=== PATIENT | female | born 2000 | race Caucasian/White ===

== ENCOUNTER 2019-03-09 17:03 | Emergency (ER) | payer OTHER ==
[2019-03-09 17:33] VITALS: BP 109/62
--- NOTE | 2019-03-09 17:44 | UC ---
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 Typically she does aerobic activity and strength training most days. She has felt able to attend classes. History of IBS with fluctuating constipation and diarrhea, most recently constipated. Has not bee following her usual diet, with a recent increase in sugar and lack of caution about intake. Has had past egd and colonoscopy. She gets achey if she does not eat a low sugar lactose free diet. No fever, headache, sore throat, uri symptoms, cough, urinary symptoms, or rashes. Her mom advised her to come for an assessment, and wonders if this might be Lyme disease. No hx of tick bites, but does spend her [place] here. LMP about 4 weeks ago, has Isi IUD in place, not sexually active in recent weeks. No travel within the past 2 to 3 months. - History of Current Complaint Chief Complaint: UCGeneralIllness Stated Complaint: ACHES AND PAINS Time Seen by Provider: 03/09/19 17:31 Hx Obtained From: Patient Hx Last Menstrual Period: 02/20/19 Onset/Duration: Gradual Onset, Lasting Days - 5 Timing: Constant Onset Severity: Mild Current Severity: Moderate Pain Intensity: 4 Pain Location at: neck and upper limbs Pain Radiates to: no radiation Character: deep ache Aggravating: movement Alleviating: ibuprofen 400mg Associated Signs & Symptoms: Negative: Agitation, Abdominal Pain, Back Pain, Confusion, Cough, Chest Pain, Dizziness, Diarrhea, Dysuria, Decreased Oral Intake, Edema, Fever, Headache, Nausea, Palpitations, Recent Medication Changes , Vomiting Related Hx: Recent Hospitalization - had breast augmentation done 2 months ago, silicon implants. - Allergy/Home Medications Allergies/Adverse Reactions: Allergies Allergy/AdvReac Type Severity Reaction Status Date / Time No Known Allergies Allergy Verified 03/09/19 17:33 Home Medications: Home Medications Ibuprofen 400 mg PO 03/09/19 [History] PMH/Surg Hx/FS Hx/Imm Hx Previously Healthy: Yes GI/ History: Other - IBS - Surgical History Surgical History: Yes Surgery Procedure, Year, and Place: breast augmentation - Family History Known Family History: Positive: Diabetes - paternal grandfather, Other - parents and 3 grandparents living and well - Social History Occupation: Student Lives: Dormitory/Roommates Alcohol Use: Rare Substance Use Type: None Smoking Status (MU): Never Smoked Tobacco Review of Systems All Other Systems Reviewed And Are Negative: Yes Constitutional: Positive: Fatigue Genitourinary: Positive: Negative, Other - LMP about 4 weeks ago. Musculoskeletal: Positive: Myalgia. Negative: Arthralgia Neurological: Positive: Negative. Negative: Headache, Weakness, Paresthesia, Numbness Is Patient Immunocompromised?: No Physical Exam Triage Information Reviewed: Yes Appearance: Well-Appearing, No Pain Distress, Well-Nourished Vital Signs: Initial Vital Signs Temp 98.9 F 03/09/19 17:29 Pulse 54 03/09/19 17:29 Resp 18 03/09/19 17:29 BP 109/62 03/09/19 17:29 Pulse Ox 100 03/09/19 17:29 Eyes: Positive: Conjunctiva Clear ENT: Positive: Pharynx normal, TMs normal Neck exam: Other - discomfort with neck movement, but full rom Neck: Positive: Supple, Nontender, No Lymphadenopathy Respiratory: Positive: Lungs clear, Normal breath sounds Cardiovascular: Positive: RRR, No Murmur, Pulses Normal Abdomen Description: Positive: Nontender, No Organomegaly, Soft. Negative: CVA Tenderness (R), CVA Tenderness (L), Hepatomegaly, Splenomegaly Musculoskeletal Exam: Normal Musculoskeletal: Positive: Strength Intact, ROM Intact, No Edema Neurological: Positive: Alert, Muscle Tone Normal Psychological Exam: Normal Skin Exam: Normal Skin: Negative: Rashes Course/Dx - Course Course Of Treatment: Discussed that there are no clinical findings of concern: no rashes, fever, vitals stable, no adenopathy etc. Advised return to her usual diet and change of eating pattern with resumption of sugar reduced and lactose free diet. Discussed lab work for screening, but at this time she opts waiting out her symptoms for a few days, and will return for further evaluation if clinical symptoms persist or evolve. Will continue ibuprofen as needed. - Differential Dx - Multi-Symptom Differential Diagnoses: Other - rheumatoid arthritis, Lyme disease, viral syndrme. - Diagnoses Provider Diagnosis: Fatigue Discharge ED - Sign-Out/Discharge Documenting (check all that apply): Patient Departure All imaging exams completed and their final reports reviewed: No Studies - Discharge Plan Condition: Good Disposition: HOME Patient Education Materials: Fatigue (ED) Referrals: No Primary Care Phys,NOPCP [Primary Care Provider] - Additional Instructions: As we discussed, there are no clinical findings of concern today. You have no rashes, fever, lymph node, iver or spleen inlargement suggestive of new infection. Your joints are not swollen and the size of your thyroid is normal. After discussion, you have deferred lab work today. I suggest that you approximate your normal eating pattern (low sugar and lactose free) and continue to monitor your symptoms. Continued use of ibuprofen for ache up th 3 times per day for a week is reasonable. Follow up if you develop fever or find rashes of concern. - Billing Disposition and Condition Condition: GOOD Disposition: Home
== END 2019-03-09 18:15 | disposition home or self-care (01) ==
LOC: UCEAST 17:03
DX: R53.83 Other fatigue (principal); M54.2 Cervicalgia
CPT/HCPCS: 99201; G0463